=== PATIENT | female | born 1990 | race Caucasian/White ===

== ENCOUNTER → 2018-01-25 | Outpatient (REF) | payer OTHER | LOC: M SFHCCLAY 14:38 | DX: L72.9 Follicular cyst of the skin and subcutaneous tissue, unspecified (principal) ==

== ENCOUNTER → 2018-09-23 | Outpatient (CLI) | payer OTHER ==
--- NOTE | 2018-09-23 12:56 | REP ---
CERVICAL SPINE, SEVEN VIEWS: HISTORY: Cervicalgia. The cervical spine is visualized from C1 to the C6-7 level in the lateral radiographs. There is no acute fracture or subluxation. The intervertebral discs are normal in height. The neural foramina patent. IMPRESSION: There is no acute fracture or subluxation. Electronically Signed by Cory Bro MD 09/23/2018 12:59 P
== END ==
LOC: M WUC 12:12
PROVIDERS: ATTEND Physician Assistant
DX: M54.2 Cervicalgia (principal)

== ENCOUNTER → 2018-12-23 | Outpatient (REF) | payer OTHER | LOC: M SFHCCLAY 14:34 | PROVIDERS: ATTEND Family Medicine | DX: R68.89 Other general symptoms and signs (principal) ==

== ENCOUNTER → 2022-12-21 | Outpatient (REF) | payer OTHER | LOC: M SFHCDERM 13:59 | PROVIDERS: ATTEND Nurse Practitioner Family | DX: I78.1 Nevus, non-neoplastic (principal) ==

== ENCOUNTER → 2022-12-25 | Outpatient (REF) | payer OTHER | LOC: M SFHCWAGY 17:17 | PROVIDERS: ATTEND Advanced Practice Midwife | DX: Z12.4 Encounter for screening for malignant neoplasm of cervix (principal) ==

== ENCOUNTER → 2023-05-04 | Outpatient (REF) | payer OTHER ==
[2023-05-04 18:35] LABS: C REACTIVE PROTEIN QUANTITATIV < 0.40 MG/DL (<1.0)
[2023-05-04 18:36] LABS: ALBUMIN 4.5 G/DL (3.2-5.2); ALKALINE PHOSPHATASE 69 U/L (46-116); ALT/SGPT 30 U/L (7.0-40); AST/SGOT 24 U/L (<34); BILIRUBIN,TOTAL 1.2 MG/DL (0.3-1.2); BLOOD UREA NITROGEN 13 MG/DL (9-23); CALCIUM LEVEL 9.3 MG/DL (8.5-10.1); CARBON DIOXIDE LEVEL 25 MMOL/L (20-31); CHLORIDE LEVEL 102 MMOL/L (98-107); FOLATE > 24.00 NG/ML (>5.4); GLOMERULAR FILTRATION RATE > 60.0 (>60); GLUCOSE, FASTING 105 MG/DL (60-100); POTASSIUM SERUM 4.3 MMOL/L (3.5-5.1); SODIUM LEVEL 136 MMOL/L (136-145); THYROID STIMULATING HORMONE 1.459 uIU/ML (0.55-4.78); TOTAL PROTEIN 7.6 G/DL (5.7-8.2); VITAMIN B12 LEVEL 356 PG/ML (211-911)
[2023-05-04 18:37] LABS: HEMATOCRIT 42.1 % (36.0-47.0); HEMOGLOBIN 14.5 g/dl (12.0-15.5); MEAN CORPUSCULAR HEMOGLOBIN 31.1 pg (27.0-33.0); MEAN CORPUSCULAR HGB CONC 34.4 g/dl (32.0-36.5); MEAN CORPUSCULAR VOLUME 90.3 fl (80.0-96.0); PLATELET COUNT, AUTOMATED 276 10^3/uL (150-450); RED BLOOD COUNT 4.66 10^6/uL (4.00-5.40)
[2023-05-04 18:39] LABS: FREE T4 1.21 NG/DL (0.89-1.76)
[2023-05-04 18:47] LABS: HEMOGLOBIN A1c 4.7 % (4.0-6.0)
[2023-05-04 19:35] LABS: ERYTHROCYTE SEDIMENTATION RATE 9 mm/hr (0-20)
== END ==
LOC: M SFHCCLAY 12:20
PROVIDERS: ATTEND Family Medicine
DX: G62.9 Polyneuropathy, unspecified (principal); M25.571 Pain in right ankle and joints of right foot

== ENCOUNTER → 2023-11-02 | Outpatient (CLI) | payer OTHER ==
[~2023-11-02] MED LIST: CLON0.5T17 PO; DEXM1CAP16 PO; DULO1CAP5 PO; FOCA20CA PO; PROP20TA72 PO
== END ==
LOC: M WHC 07:38
PROVIDERS: ATTEND Obstetrics & Gynecology
DX: T83.39XA Other mechanical complication of intrauterine contraceptive device, initial encounter (principal); Y93.9 Activity, unspecified; Y92.9 Unspecified place or not applicable

== ENCOUNTER 2023-11-05 09:32 | Day surgery (SDC) | payer OTHER ==
[~2023-11-05] VITALS: Ht 170.2 cm; Wt 99.8 kg
[~2023-11-05 09:32] MED LIST changes: +KETOROLAC 60MG 2ML VIAL As Ordered ONE; +LIDOCAINE 2% 100MG/5ML SDV (FOR ANES.) As Ordered ONE; +MIDAZOLAM INJ 2MG/2ML VIAL As Ordered ONE; +ONDANSETRON 4MG 2ML VIAL As Ordered ONE; +fentaNYL 100 MCG/2 ML INJECTION As Ordered ONE; +propofoL 200 MG/20 ML VIAL As Ordered ONE
[2023-11-05] MEDS ORDERED: LR 1,000 ML IV SCH (09:35)
[2023-11-05] MEDS: LR 1,000 ML IV SCH (10:11)
[2023-11-05 10:15] LABS: HEMATOCRIT 40.8 % (36.0-47.0); HEMOGLOBIN 13.9 g/dl (12.0-15.5); MEAN CORPUSCULAR HEMOGLOBIN 31.2 pg (27.0-33.0); MEAN CORPUSCULAR HGB CONC 34.1 g/dl (32.0-36.5); MEAN CORPUSCULAR VOLUME 91.5 fl (80.0-96.0); PLATELET COUNT, AUTOMATED 246 10^3/uL (150-450); RED BLOOD COUNT 4.46 10^6/uL (4.00-5.40); WHITE BLOOD COUNT 5.1 10^3/uL (4.0-10.0)
[2023-11-05] MEDS: LEVONORGESTREL 52MG (MIRENA) IUD As Ordered ONE (11:06)
[2023-11-05 11:33] VITALS: BP 138/77; TEMP 97.4; O2SAT 99
[2023-11-05] MEDS ORDERED: ACETAMINOPHEN 500 MG TAB PO PRN (11:50)
[2023-11-05] MEDS ORDERED: ONDANSETRON 4MG 2ML VIAL IV PRN (11:50)
[2023-11-05] MEDS ORDERED: IBUPROFEN 600MG TAB PO PRN (11:50)
== END 2023-11-05 11:53 | disposition home or self-care (01) ==
LOC: M SDC 09:32
PROVIDERS: ATTEND Obstetrics & Gynecology
DX: Z30.433 Encounter for removal and reinsertion of intrauterine contraceptive device (principal); Z72.0 Tobacco use; F32.A Depression, unspecified; F41.9 Anxiety disorder, unspecified; Z79.899 Other long term (current) drug therapy; Z88.1 Allergy status to other antibiotic agents
CPT/HCPCS: 36415; 58300; 58301; 81025; 85027; 86850; 86900; 86901; J0665; J1100; J1885; J2250; J2405; J3010; J7298

== ENCOUNTER → 2024-09-05 | Outpatient (CLI) | payer SELFPAY ==
[~2024-09-05] MED LIST changes: -KETOROLAC 60MG 2ML VIAL As Ordered ONE; -LIDOCAINE 2% 100MG/5ML SDV (FOR ANES.) As Ordered ONE; -MIDAZOLAM INJ 2MG/2ML VIAL As Ordered ONE; -ONDANSETRON 4MG 2ML VIAL As Ordered ONE; -fentaNYL 100 MCG/2 ML INJECTION As Ordered ONE; -propofoL 200 MG/20 ML VIAL As Ordered ONE
== END ==
LOC: M CLY 10:59
PROVIDERS: ATTEND Physician Assistant
DX: R05.1 Acute cough (principal); J18.9 Pneumonia, unspecified organism

== ENCOUNTER → 2025-06-20 | Outpatient (CLI) | payer BC | LOC: M SLEEP HO 11:43 | PROVIDERS: ATTEND Family Medicine | DX: R29.818 Other symptoms and signs involving the nervous system (principal) ==